=== PATIENT | male | born 1965 | race Caucasian/White ===

== ENCOUNTER 2023-07-14 18:42 | Emergency (ER) | payer OTHER ==
[~2023-07-14] VITALS: Ht 182.9 cm; Wt 100.5 kg
[2023-07-14 18:49] VITALS: BP 150/79; PULSE 93; RESP 16; TEMP 98.5
[2023-07-14] MEDS ORDERED: IBUPROFEN 600 MG TABLET PO ONE (20:00)
[2023-07-14] MEDS ORDERED: AMOX TR/POT CLAV 875 MG/125 MG TABLET PO ONE (20:00)
[2023-07-14] MEDS ORDERED: AMOX1TAB16 PO (20:18)
== END 2023-07-15 00:59 | disposition home or self-care (01) ==
LOC: EMS 18:46
DX: K04.7 Periapical abscess without sinus (principal); K02.9 Dental caries, unspecified; F17.210 Nicotine dependence, cigarettes, uncomplicated; Z98.890 Other specified postprocedural states
CPT/HCPCS: 99283